=== PATIENT | male | born 1990 | race Native Hawaiian/Other Pacific Islander ===

== ENCOUNTER 2021-12-03 12:17 | Outpatient (CLI) | payer BC ==
[2021-12-03 13:09] LABS: POTASSIUM 4.1 mmol/L (3.6-5.2)
[2021-12-03 13:23] LABS: PLATELET COUNT 275 K/uL (142-355)
== END 2021-12-03 19:22 | disposition home or self-care (01) ==
LOC: LABW 12:17
PROVIDERS: ATTEND Nurse Practitioner Family
DX: R07.89 Other chest pain (principal); R53.83 Other fatigue; Z13.220 Encounter for screening for lipoid disorders; Z13.29 Encounter for screening for other suspected endocrine disorder; Z13.1 Encounter for screening for diabetes mellitus
CPT/HCPCS: 36415; 80053; 80061; 82306; 82553; 82607; 82670; 83036; 84153; 84402; 84403; 84439; 84443; 84481; 84484; 85027; 86376; 93005